=== PATIENT | male | born 1950 | race African-American/Black ===

== ENCOUNTER 2020-02-25 21:47 | Inpatient (IN) | payer OTHER ==
[~2020-02-25] VITALS: Ht 175.3 cm; Wt 92.5 kg
[2020-02-25 22:41] LABS: Basophils # (auto) 0 10 ^3/uL (0-0.2); Eosinophils # (auto) 0.1 10 ^3/uL (0-0.8); Eosinophils % (auto) 3.6 % (0.0-7.0); Hematocrit 33.7 % (41.0-53.0); Hemoglobin 10.8 g/dL (13.5-17.5); Lymphocytes # (auto) 1.1 10 ^3/uL (0.4-5.4); Lymphocytes % (auto) 28.2 % (10.0-50.0); Mean Corpuscular Hemoglobin 25.5 pg (28.0-32.0); Mean Corpuscular Hgb Conc. 32.1 g/dL (32.0-36.0); Mean Corpuscular Volume 79.5 fL (80.0-100.0); Monocytes # (auto) 0.7 10 ^3/uL (0-1.3); Monocytes % (auto) 17.3 % (0.0-12.0); Neutrophils % (auto) 49.9 % (37.0-80.0); Nucleated Red Blood Cells % 0.1 %; Platelet Count (auto) 306 10^3/uL (140-450); Red Blood Cells 4.24 10^6/uL (4.5-5.90); Red Cell Distribution Width 15.8 % (11.8-14.3); White Blood Cell 3.9 10^3/uL (4.4-10.8)
[2020-02-25 22:55] LABS: Albumin 3.4 g/dL (3.4-5.0); Calcium 8.4 mg/dL (8.5-10.1); Potassium 3.7 mmol/L (3.5-5.1)
[2020-02-25 22:56] LABS: INR 1.16 (0.9-1.15); Partial Thromboplastin Time 29.6 sec (23.0-31.2)
[2020-02-25 23:00] LABS: BUN/Creatinine Ratio 20.2; Total Protein 7.9 g/dL (6.4-8.2)
[2020-02-26] MEDS ORDERED: dilTIAZem HCL 60 MG TAB PO ONE (00:15)
[2020-02-26] MEDS ORDERED: dilTIAZem 25 MG/5 ML VIAL IV ONE (00:15)
[2020-02-26] MEDS ORDERED: FUROSEMIDE 40 MG/4 ML VIAL IV ONE (02:30)
[2020-02-26] MEDS ORDERED: ENOXAPARIN SOD 100 MG/1 ML SYRINGE SC ONE (02:45)
[2020-02-26] MEDS ORDERED: NITROGLYCERIN 0.4 MG SL TAB SL PRN (03:30)
[2020-02-26] MEDS ORDERED: MORPHINE SULF INJ 2 MG/ML SYRINGE 1ML IV PRN (03:30)
[2020-02-26] MEDS ORDERED: HYDROcodone-ACET 5/325MG TAB PO PRN (03:30)
[2020-02-26] MEDS ORDERED: ACETAMINOPHEN 325 MG TAB PO PRN (03:30)
[2020-02-26] MEDS ORDERED: ONDANSETRON HCL 4 MG/2 ML VIAL IV PRN (03:30)
[2020-02-26] MEDS ORDERED: DOCUSATE SOD 100 MG CAP PO PRN (03:30)
[2020-02-26] MEDS ORDERED: MORPHINE SULFATE 4 MG/ML SYR/VIAL IV PRN (03:30)
[2020-02-26] MEDS: FUROSEMIDE 40 MG/4 ML VIAL IV SCH ×2 (06:00→18:09)
[2020-02-26 06:09] LABS: Basophils # (auto) 0.1 10 ^3/uL (0-0.2); Eosinophils # (auto) 0.1 10 ^3/uL (0-0.8); Lymphocytes # (auto) 0.9 10 ^3/uL (0.4-5.4); Monocytes # (auto) 0.7 10 ^3/uL (0-1.3); Monocytes % (auto) 16.6 % (0.0-12.0); Neutrophils # (auto) 2.4 10 ^3/uL (1.6-8.6)
[2020-02-26 06:11] LABS: Basophils % (auto) 1.3 % (0.0-2.0); Eosinophils % (auto) 3.1 % (0.0-7.0); Hematocrit 32.6 % (41.0-53.0); Hemoglobin 10.5 g/dL (13.5-17.5); Lymphocytes % (auto) 22.1 % (10.0-50.0); Mean Corpuscular Hemoglobin 25.7 pg (28.0-32.0); Mean Corpuscular Hgb Conc. 32.1 g/dL (32.0-36.0); Neutrophils % (auto) 56.9 % (37.0-80.0); Nucleated Red Blood Cells % 0.3 %; Platelet Count (auto) 302 10^3/uL (140-450); Red Blood Cells 4.08 10^6/uL (4.5-5.90); Red Cell Distribution Width 15.7 % (11.8-14.3); White Blood Cell 4.3 10^3/uL (4.4-10.8)
[2020-02-26 06:29] LABS: Potassium 3.8 mmol/L (3.5-5.1)
[2020-02-26 06:39] LABS: Albumin 3.3 g/dL (3.4-5.0); BUN/Creatinine Ratio 19.1; Bilirubin, Total 1.4 mg/dL (0.2-1.0); Calcium 8.5 mg/dL (8.5-10.1); Total Protein 7.7 g/dL (6.4-8.2)
[2020-02-26] MEDS ORDERED: hydrALAZINE HCL 20 MG/ML VL ONE (07:38)
[2020-02-26] MEDS: ASPirin 81 mg TAB PO SCH (07:40)
[2020-02-26] MEDS: ZINC SULFATE 220mg CAP or TAB PO SCH (07:40)
[2020-02-26] MEDS: MULTIPLE VITAMIN TAB PO SCH (07:40)
[2020-02-26] MEDS: ASCORBIC ACID 500 MG TAB PO SCH ×2 (07:40→22:30)
[2020-02-26] MEDS: FAMOTIDINE (10MG/ML) 2ML VL IV SCH ×2 (07:40→22:29)
[2020-02-26] MEDS: HEPARIN SODIUM (PORCINE) 5000 UNITS/ML 1ML VIAL SC SCH ×2 (07:41→22:33)
[2020-02-26] MEDS: hydrALAZINE HCL 20 MG/ML VL IV PRN (07:44)
[2020-02-26] MEDS ORDERED: dilTIAZem 120MG ER CAP PO SCH (10:00)
[2020-02-26] MEDS: METOPROLOL TARTRATE 50 MG TAB PO SCH ×2 (13:03→22:30)
[2020-02-26] MEDS: LOSARTAN POTASSIUM 50 MG TAB PO SCH (13:03)
[2020-02-26] MEDS ORDERED: PHYTONADIONE(VitK) ORAL Susp 10mg/10ml(1mg/ml) PO ONE (15:00)
[2020-02-27] MEDS: FUROSEMIDE 40 MG/4 ML VIAL IV SCH ×2 (06:00→17:37)
[2020-02-27 07:09] LABS: Mean Corpuscular Hemoglobin 25.4 pg (28.0-32.0)
[2020-02-27 07:11] LABS: Hemoglobin 10.5 g/dL (13.5-17.5); Mean Corpuscular Hgb Conc. 31.9 g/dL (32.0-36.0); Mean Corpuscular Volume 79.7 fL (80.0-100.0); Platelet Count (auto) 297 10^3/uL (140-450); Red Blood Cells 4.15 10^6/uL (4.5-5.90); Red Cell Distribution Width 16.1 % (11.8-14.3)
[2020-02-27 07:16] LABS: Basophils % (manual) 0 (0.0-2.0); Blast Cells 0; Metamyelocytes % 0; Myelocytes % 0; Promyelocytes % 0; Reactive Lymphocytes 0
[2020-02-27 07:21] LABS: INR 1.25 (0.9-1.15)
[2020-02-27 07:31] LABS: Albumin 3.4 g/dL (3.4-5.0); Calcium 8.7 mg/dL (8.5-10.1); Potassium 3.9 mmol/L (3.5-5.1)
[2020-02-27 07:39] LABS: BUN/Creatinine Ratio 17.6; Bilirubin, Total 1.3 mg/dL (0.2-1.0); Total Protein 8.1 g/dL (6.4-8.2)
[2020-02-27] MEDS ORDERED: ADENOSINE 74 MG in GIVE UN-DILUTED 0 ML IV STA (08:17)
[2020-02-27] MEDS: FAMOTIDINE (10MG/ML) 2ML VL IV SCH ×2 (08:42→22:05)
[2020-02-27] MEDS: METOPROLOL TARTRATE 50 MG TAB PO SCH ×2 (08:43→22:07)
[2020-02-27] MEDS: ASPirin 81 mg TAB PO SCH (08:43)
[2020-02-27] MEDS: LOSARTAN POTASSIUM 50 MG TAB PO SCH (08:43)
[2020-02-27] MEDS: ZINC SULFATE 220mg CAP or TAB PO SCH (08:43)
[2020-02-27] MEDS: ASCORBIC ACID 500 MG TAB PO SCH ×2 (08:43→22:05)
[2020-02-27] MEDS: MULTIPLE VITAMIN TAB PO SCH (08:43)
[2020-02-27 10:21] LABS: Band Neutrophils % (manual) 5; Eosinophils % (manual) 1 (0-7); Lymphocytes % (manual) 28 (10.0-50.0); Monocytes % (manual) 13 (0-12)
[2020-02-27] MEDS: hydrALAZINE HCL 25 MG TAB PO SCH ×2 (10:22→22:07)
[2020-02-27] MEDS: HEPARIN SODIUM (PORCINE) 5000 UNITS/ML 1ML VIAL SC SCH ×2 (10:22→22:06)
[2020-02-27] MEDS: ISOSORBIDE MONONITRATE IR 20 MG TAB PO SCH ×2 (10:22→22:06)
[2020-02-27] MEDS: hydrALAZINE HCL 20 MG/ML VL IV PRN (11:32)
[2020-02-27 21:40] VITALS: BP 112/75
[2020-02-28 05:00] VITALS: BP 134/107
[2020-02-28] MEDS: FUROSEMIDE 40 MG/4 ML VIAL IV SCH ×2 (06:00→18:18)
[2020-02-28 08:00] VITALS: BP 138/84
[2020-02-28] MEDS: FAMOTIDINE (10MG/ML) 2ML VL IV SCH ×2 (08:15→22:07)
[2020-02-28] MEDS: ASCORBIC ACID 500 MG TAB PO SCH ×2 (10:00→22:08)
[2020-02-28] MEDS: MULTIPLE VITAMIN TAB PO SCH (10:00)
[2020-02-28] MEDS: ZINC SULFATE 220mg CAP or TAB PO SCH (10:00)
[2020-02-28] MEDS: HEPARIN SODIUM (PORCINE) 5000 UNITS/ML 1ML VIAL SC SCH ×2 (10:00→22:08)
[2020-02-28] MEDS: ASPirin 81 mg TAB PO SCH (10:00)
[2020-02-28] MEDS: hydrALAZINE HCL 25 MG TAB PO SCH ×2 (10:00→22:07)
[2020-02-28] MEDS: LOSARTAN POTASSIUM 50 MG TAB PO SCH (10:15)
[2020-02-28] MEDS: METOPROLOL TARTRATE 50 MG TAB PO SCH ×2 (10:16→22:08)
[2020-02-28 11:03] LABS: BUN/Creatinine Ratio 19.4; Calcium 8.5 mg/dL (8.5-10.1); Potassium 3.3 mmol/L (3.5-5.1)
[2020-02-28 11:09] LABS: Basophils # (auto) 0.1 10 ^3/uL (0-0.2); Eosinophils # (auto) 0.2 10 ^3/uL (0-0.8); Lymphocytes # (auto) 0.8 10 ^3/uL (0.4-5.4); Monocytes # (auto) 0.8 10 ^3/uL (0-1.3); Red Cell Distribution Width 15.8 % (11.8-14.3)
[2020-02-28 11:11] LABS: Hematocrit 32.1 % (41.0-53.0); Hemoglobin 10.3 g/dL (13.5-17.5); Mean Corpuscular Hemoglobin 25.1 pg (28.0-32.0); Mean Corpuscular Hgb Conc. 32.2 g/dL (32.0-36.0); Mean Corpuscular Volume 77.9 fL (80.0-100.0); Nucleated Red Blood Cells % 0.2 %; Platelet Count (auto) 304 10^3/uL (140-450); Red Blood Cells 4.12 10^6/uL (4.5-5.90); White Blood Cell 4.4 10^3/uL (4.4-10.8)
[2020-02-28] MEDS: ISOSORBIDE MONONITRATE IR 20 MG TAB PO SCH ×2 (11:21→22:08)
[2020-02-28 11:29] LABS: Basophils % (auto) 1.4 % (0.0-2.0); Eosinophils % (auto) 4.2 % (0.0-7.0); Monocytes % (auto) 16.9 % (0.0-12.0); Neutrophils # (auto) 2.7 10 ^3/uL (1.6-8.6); Neutrophils % (auto) 59.5 % (37.0-80.0)
[2020-02-28 16:00] VITALS: BP 127/94
[2020-02-28 20:00] VITALS: BP 136/106
[2020-02-28 22:00] VITALS: BP 136/103
[2020-02-29 05:00] VITALS: BP 126/84
[2020-02-29] MEDS: FUROSEMIDE 40 MG/4 ML VIAL IV SCH (05:57)
[2020-02-29 08:00] VITALS: BP 145/93
[2020-02-29 08:10] VITALS: BP_SYST 136; BP_SYST 145; BP_DIAS 106; BP_DIAS 93
[2020-02-29] MEDS: ISOSORBIDE MONONITRATE IR 20 MG TAB PO SCH (10:00)
[2020-02-29] MEDS: FAMOTIDINE (10MG/ML) 2ML VL IV SCH (10:36)
[2020-02-29] MEDS: ZINC SULFATE 220mg CAP or TAB PO SCH (10:37)
[2020-02-29] MEDS: ASPirin 81 mg TAB PO SCH (10:37)
[2020-02-29] MEDS: hydrALAZINE HCL 25 MG TAB PO SCH (10:38)
[2020-02-29] MEDS: LOSARTAN POTASSIUM 50 MG TAB PO SCH (10:38)
[2020-02-29] MEDS: ASCORBIC ACID 500 MG TAB PO SCH (10:39)
[2020-02-29] MEDS: MULTIPLE VITAMIN TAB PO SCH (10:39)
[2020-02-29] MEDS: METOPROLOL TARTRATE 50 MG TAB PO SCH (10:39)
[2020-02-29] MEDS: HEPARIN SODIUM (PORCINE) 5000 UNITS/ML 1ML VIAL SC SCH (10:40)
[2020-02-29 13:46] VITALS: BP 145/93
== END 2020-02-29 16:55 | disposition home or self-care (01) | DRG 280 ==
LOC: ER 21:49 → TELE 21:50 → TELE-CENTR 02-27 21:00
PROVIDERS: ADMIT Nurse Practitioner Family; ATTEND Family Medicine
DX: I13.0 Hypertensive heart and chronic kidney disease with heart failure and stage 1 through stage 4 chronic kidney disease, or unspecified chronic kidney disease (principal); I21.A1 Myocardial infarction type 2; N17.0 Acute kidney failure with tubular necrosis; I50.42 Chronic combined systolic (congestive) and diastolic (congestive) heart failure; I16.1 Hypertensive emergency; I48.19 Other persistent atrial fibrillation; D68.69 Other thrombophilia; I48.92 Unspecified atrial flutter; N18.9 Chronic kidney disease, unspecified; K21.9 Gastro-esophageal reflux disease without esophagitis; F17.210 Nicotine dependence, cigarettes, uncomplicated; F41.9 Anxiety disorder, unspecified; I25.10 Atherosclerotic heart disease of native coronary artery without angina pectoris; G89.29 Other chronic pain; Z20.822 Contact with and (suspected) exposure to COVID-19; Z95.1 Presence of aortocoronary bypass graft; Z95.5 Presence of coronary angioplasty implant and graft; Z95.810 Presence of automatic (implantable) cardiac defibrillator
CPT/HCPCS: 36415; 71045; 78452; 80048; 80053; 83735; 83880; 84443; 84484; 85007; 85025; 85027; 85379; 85610; 85730; 87426; 93005; 93017; 93306; 96372; 96374; 96375; G0378; J0153; J3490

== ENCOUNTER 2020-03-13 13:19 | Inpatient (IN) | payer OTHER ==
[~2020-03-13] VITALS: Ht 175.3 cm; Wt 70.0 kg
[2020-03-13] MEDS ORDERED: SODIUM CHLORIDE 0.9% 500 ML IVB ONE (13:45)
[2020-03-13] MEDS ORDERED: ONDANSETRON HCL 4 MG/2 ML VIAL IV ONE (13:45)
[2020-03-13] MEDS ORDERED: MORPHINE SULFATE 4 MG/ML SYR/VIAL IV ONE (13:45)
[2020-03-13 15:19] LABS: Basophils # (auto) 0 10 ^3/uL (0-0.2); Eosinophils # (auto) 0 10 ^3/uL (0-0.8); Hematocrit 41.4 % (41.0-53.0); Lymphocytes # (auto) 1.1 10 ^3/uL (0.4-5.4); Monocytes % (auto) 14.4 % (0.0-12.0)
[2020-03-13 15:21] LABS: Basophils % (auto) 0.2 % (0.0-2.0); Hemoglobin 13.2 g/dL (13.5-17.5); Lymphocytes % (auto) 7.3 % (10.0-50.0); Mean Corpuscular Hemoglobin 24.6 pg (28.0-32.0); Mean Corpuscular Hgb Conc. 31.8 g/dL (32.0-36.0); Mean Corpuscular Volume 77.4 fL (80.0-100.0); Monocytes # (auto) 2.1 10 ^3/uL (0-1.3); Neutrophils # (auto) 11.5 10 ^3/uL (1.6-8.6); Neutrophils % (auto) 78.1 % (37.0-80.0); Platelet Count (auto) 307 10^3/uL (140-450); Red Blood Cells 5.35 10^6/uL (4.5-5.90); Red Cell Distribution Width 16.5 % (11.8-14.3); White Blood Cell 14.8 10^3/uL (4.4-10.8)
[2020-03-13 15:44] LABS: Albumin 3.6 g/dL (3.4-5.0); BUN/Creatinine Ratio 15.2; Calcium 9.4 mg/dL (8.5-10.1); Potassium 5.1 mmol/L (3.5-5.1)
[2020-03-13 15:47] LABS: Bilirubin, Total 2.3 mg/dL (0.2-1.0); Total Protein 8.5 g/dL (6.4-8.2)
[2020-03-13] MEDS ORDERED: dilTIAZem 25 MG/5 ML VIAL IV ONE (16:30)
[2020-03-13] MEDS ORDERED: MORPHINE SULF INJ 2 MG/ML SYRINGE 1ML IV PRN (18:15)
[2020-03-13] MEDS ORDERED: CEFTRIAXONE SODIUM 2 GM in D5W 5% 50 ML IV ONE (18:15)
[2020-03-13] MEDS ORDERED: NITROGLYCERIN 0.4 MG SL TAB SL PRN (18:15)
[2020-03-13] MEDS ORDERED: FURO40TA4 PO (19:10)
[2020-03-13] MEDS ORDERED: METO-158 PO (19:10)
[2020-03-13] MEDS ORDERED: LOSA-69 PO (19:12)
[2020-03-13] MEDS ORDERED: ASPI-498 PO (19:14)
[2020-03-13] MEDS ORDERED: HYDR50TA15 PO (19:15)
[2020-03-13] MEDS ORDERED: POTA10TA32 PO (19:21)
[2020-03-13] MEDS ORDERED: LACTATED RINGER'S 1,000 ML IV ONE (20:00)
[2020-03-14] MEDS ORDERED: dilTIAZem 25 MG/5 ML VIAL IV ONE (01:15)
[2020-03-14] MEDS ORDERED: HYDROcodone-ACET 5/325MG TAB PO PRN (04:00)
[2020-03-14] MEDS ORDERED: ONDANSETRON HCL 4 MG/2 ML VIAL IV PRN (04:00)
[2020-03-14] MEDS ORDERED: MORPHINE SULF INJ 2 MG/ML SYRINGE 1ML IV PRN ×2 (04:00)
[2020-03-14] MEDS ORDERED: LORazepam 0.5 MG TAB PO PRN (04:00)
[2020-03-14] MEDS ORDERED: NITROGLYCERIN 0.4 MG SL TAB SL PRN (04:00)
[2020-03-14] MEDS ORDERED: DOXYCYCLINE 100MG/250ML 250 ML IV SCH (04:00)
[2020-03-14] MEDS ORDERED: ACETAMINOPHEN 325 MG TAB PO PRN (04:00)
[2020-03-14] MEDS ORDERED: METOPROLOL TARTRATE 1MG/1ML-5ML VIAL IV PRN (04:00)
[2020-03-14] MEDS ORDERED: ALUM & MAG HYDROX-SIMETH LIQ(MAALOX) 30 ML PO PRN (04:00)
[2020-03-14] MEDS ORDERED: DOCUSATE SOD 100 MG CAP PO PRN (04:00)
[2020-03-14] MEDS: FUROSEMIDE 20 MG/2 ML VIAL IV SCH ×3 (05:59→17:27)
[2020-03-14] MEDS: DOXYCYCLINE 100MG/250ML 250 ML IV SCH ×2 (06:20→16:18)
[2020-03-14 06:56] LABS: Basophils # (auto) 0.1 10 ^3/uL (0-0.2); Basophils % (auto) 0.5 % (0.0-2.0); Eosinophils # (auto) 0 10 ^3/uL (0-0.8); Eosinophils % (auto) 0.2 % (0.0-7.0); Hemoglobin 12.3 g/dL (13.5-17.5); Lymphocytes # (auto) 1.4 10 ^3/uL (0.4-5.4); Mean Corpuscular Volume 77.6 fL (80.0-100.0)
[2020-03-14 06:59] LABS: Hematocrit 38.2 % (41.0-53.0); Lymphocytes % (auto) 9.7 % (10.0-50.0); Mean Corpuscular Hemoglobin 24.9 pg (28.0-32.0); Mean Corpuscular Hgb Conc. 32.1 g/dL (32.0-36.0); Monocytes # (auto) 2.1 10 ^3/uL (0-1.3); Monocytes % (auto) 14.2 % (0.0-12.0); Neutrophils # (auto) 11.3 10 ^3/uL (1.6-8.6); Neutrophils % (auto) 75.4 % (37.0-80.0); Platelet Count (auto) 274 10^3/uL (140-450); Red Blood Cells 4.92 10^6/uL (4.5-5.90); Red Cell Distribution Width 16.4 % (11.8-14.3); White Blood Cell 14.9 10^3/uL (4.4-10.8)
[2020-03-14 07:30] LABS: INR 1.16 (0.9-1.15); Partial Thromboplastin Time 32.5 sec (23.0-31.2)
[2020-03-14 07:39] LABS: Potassium 4.5 mmol/L (3.5-5.1)
[2020-03-14 08:09] LABS: BUN/Creatinine Ratio 16.6; Bilirubin, Total 2.1 mg/dL (0.2-1.0); Calcium 8.7 mg/dL (8.5-10.1); Magnesium 2.1 mg/dL (1.6-2.6); Phosphorus 3.8 mg/dL (2.5-4.90); Total Protein 7.6 g/dL (6.4-8.2)
[2020-03-14 08:49] VITALS: BP 130/110
[2020-03-14] MEDS ORDERED: cefTRIAXone 1GM/50ML D5W 50 ML IV SCH (09:00)
[2020-03-14] MEDS: cefTRIAXone 1GM/50ML D5W 50 ML IV SCH (09:47)
[2020-03-14] MEDS: hydrALAZINE HCL 25 MG TAB PO SCH ×2 (09:48→22:00)
[2020-03-14] MEDS: ISOSORBIDE MONONITRATE IR 20 MG TAB PO SCH ×2 (09:48→22:00)
[2020-03-14] MEDS: ASPirin-EC 81 mg tab PO SCH (09:48)
[2020-03-14] MEDS: METOPROLOL TARTRATE 50 MG TAB PO SCH ×2 (09:49→22:00)
[2020-03-14] MEDS: ENOXAPARIN SOD 60 MG/0.6 ML SYRINGE SC SCH ×2 (09:49→22:07)
[2020-03-14] MEDS ORDERED: INFLUENZA QUAD 2020-2021 0.5 ML SYRG IM ONE (10:00)
[2020-03-14 15:55] VITALS: BP 130/68
[2020-03-14 22:00] VITALS: BP 108/76
[2020-03-14] MEDS: ATORVASTATIN 20 MG TAB PO SCH (22:06)
[2020-03-15 00:16] LABS: Urine Bacteria FEW /hpf (None Seen); Urine Blood 2+ /uL (Negative); Urine WBC 1 /hpf (0 - 3)
[2020-03-15 00:34] LABS: Alcohol, Urine < 3.0 mg/dL (0-10); Amphetamine Screen, Urine NEGATIVE (NEGATIVE); Barbiturate Scree,Urine NEGATIVE (NEGATIVE); Benzodiazephine Screen, Urine NEGATIVE (NEGATIVE); Cannabinoid Screen, Urine NEGATIVE (NEGATIVE); Cocaine Screen, Urine NEGATIVE (NEGATIVE); Opiate Scree,Urine NEGATIVE (NEGATIVE); Phencyclidine Screen, Urine NEGATIVE (NEGATIVE)
[2020-03-15] MEDS: DOXYCYCLINE 100MG/250ML 250 ML IV SCH ×2 (03:42→17:54)
[2020-03-15 05:00] VITALS: BP 117/75
[2020-03-15] MEDS: FUROSEMIDE 20 MG/2 ML VIAL IV SCH ×2 (06:50→17:54)
[2020-03-15 06:58] LABS: Basophils # (auto) 0.1 10 ^3/uL (0-0.2); Eosinophils # (auto) 0.1 10 ^3/uL (0-0.8); Monocytes # (auto) 1.7 10 ^3/uL (0-1.3); Neutrophils % (auto) 72.7 % (37.0-80.0)
[2020-03-15 06:59] LABS: Basophils % (auto) 0.7 % (0.0-2.0); Hematocrit 34.1 % (41.0-53.0); Lymphocytes # (auto) 1.2 10 ^3/uL (0.4-5.4); Lymphocytes % (auto) 10.3 % (10.0-50.0); Mean Corpuscular Hemoglobin 24.9 pg (28.0-32.0); Mean Corpuscular Hgb Conc. 32.2 g/dL (32.0-36.0); Mean Corpuscular Volume 77.4 fL (80.0-100.0); Monocytes % (auto) 15.3 % (0.0-12.0); Neutrophils # (auto) 8.2 10 ^3/uL (1.6-8.6); Nucleated Red Blood Cells % 0.1 %; Platelet Count (auto) 230 10^3/uL (140-450); Red Cell Distribution Width 16.4 % (11.8-14.3); White Blood Cell 11.3 10^3/uL (4.4-10.8)
[2020-03-15 07:08] LABS: Albumin 2.7 g/dL (3.4-5.0); Calcium 8.6 mg/dL (8.5-10.1); Potassium 4.3 mmol/L (3.5-5.1)
[2020-03-15 07:11] LABS: BUN/Creatinine Ratio 16.7; Bilirubin, Total 1.9 mg/dL (0.2-1.0); Total Protein 7.2 g/dL (6.4-8.2)
[2020-03-15 07:54] VITALS: BP 118/83
[2020-03-15] MEDS: ASPirin-EC 81 mg tab PO SCH (10:34)
[2020-03-15] MEDS: hydrALAZINE HCL 25 MG TAB PO SCH ×2 (10:34→21:57)
[2020-03-15] MEDS: cefTRIAXone 1GM/50ML D5W 50 ML IV SCH (10:34)
[2020-03-15] MEDS: METOPROLOL TARTRATE 50 MG TAB PO SCH ×2 (10:35→21:58)
[2020-03-15] MEDS: ISOSORBIDE MONONITRATE IR 20 MG TAB PO SCH ×2 (10:35→21:57)
[2020-03-15] MEDS: ENOXAPARIN SOD 60 MG/0.6 ML SYRINGE SC SCH ×2 (10:36→21:58)
[2020-03-15 15:44] VITALS: BP 96/58
[2020-03-15 21:44] VITALS: BP 118/77
[2020-03-15] MEDS: ATORVASTATIN 20 MG TAB PO SCH (21:57)
[2020-03-16] MEDS: DOXYCYCLINE 100MG/250ML 250 ML IV SCH (04:01)
[2020-03-16] MEDS: FUROSEMIDE 20 MG/2 ML VIAL IV SCH (05:31)
[2020-03-16 05:41] VITALS: BP 101/76
[2020-03-16 07:06] LABS: Potassium 4.6 mmol/L (3.5-5.1)
[2020-03-16 07:12] LABS: BUN/Creatinine Ratio 21.7; Bilirubin, Total 1.3 mg/dL (0.2-1.0); Total Protein 8.2 g/dL (6.4-8.2)
[2020-03-16 07:13] LABS: Basophils # (auto) 0 10 ^3/uL (0-0.2); Basophils % (auto) 0.4 % (0.0-2.0); Eosinophils # (auto) 0.2 10 ^3/uL (0-0.8); Eosinophils % (auto) 2.1 % (0.0-7.0); Hematocrit 35.7 % (41.0-53.0); Hemoglobin 11.5 g/dL (13.5-17.5); Lymphocytes # (auto) 1.6 10 ^3/uL (0.4-5.4); Lymphocytes % (auto) 17.7 % (10.0-50.0); Mean Corpuscular Hemoglobin 25.2 pg (28.0-32.0); Mean Corpuscular Hgb Conc. 32.3 g/dL (32.0-36.0); Mean Corpuscular Volume 77.9 fL (80.0-100.0); Monocytes # (auto) 1.3 10 ^3/uL (0-1.3); Monocytes % (auto) 14.7 % (0.0-12.0); Neutrophils # (auto) 5.8 10 ^3/uL (1.6-8.6); Neutrophils % (auto) 65.1 % (37.0-80.0); Nucleated Red Blood Cells % 0.1 %; Platelet Count (auto) 279 10^3/uL (140-450); Red Blood Cells 4.57 10^6/uL (4.5-5.90); Red Cell Distribution Width 16.5 % (11.8-14.3); White Blood Cell 8.9 10^3/uL (4.4-10.8)
[2020-03-16 08:00] VITALS: BP 126/78
[2020-03-16] MEDS: cefTRIAXone 1GM/50ML D5W 50 ML IV SCH (10:09)
[2020-03-16] MEDS: ASPirin-EC 81 mg tab PO SCH (10:10)
[2020-03-16] MEDS: hydrALAZINE HCL 25 MG TAB PO SCH (10:10)
[2020-03-16] MEDS: ISOSORBIDE MONONITRATE IR 20 MG TAB PO SCH (10:11)
[2020-03-16] MEDS: ENOXAPARIN SOD 60 MG/0.6 ML SYRINGE SC SCH (10:12)
[2020-03-16] MEDS: METOPROLOL TARTRATE 50 MG TAB PO SCH (10:12)
[2020-03-16 15:41] VITALS: BP 121/87
== END 2020-03-16 15:14 | disposition home or self-care (01) | DRG 871 ==
LOC: ER 13:19 → TELE 18:02 → TELE-EAST 03-14 08:38
PROVIDERS: ADMIT Hospitalist; ATTEND Family Medicine
DX: A41.9 Sepsis, unspecified organism (principal); J18.9 Pneumonia, unspecified organism; I21.4 Non-ST elevation (NSTEMI) myocardial infarction; N17.0 Acute kidney failure with tubular necrosis; N10 Acute pyelonephritis; I48.19 Other persistent atrial fibrillation; B17.9 Acute viral hepatitis, unspecified; I13.0 Hypertensive heart and chronic kidney disease with heart failure and stage 1 through stage 4 chronic kidney disease, or unspecified chronic kidney disease; I16.1 Hypertensive emergency; J44.0 Chronic obstructive pulmonary disease with (acute) lower respiratory infection; K80.10 Calculus of gallbladder with chronic cholecystitis without obstruction; I50.42 Chronic combined systolic (congestive) and diastolic (congestive) heart failure; I50.82 Biventricular heart failure; I25.5 Ischemic cardiomyopathy; N18.31 Chronic kidney disease, stage 3a; K76.0 Fatty (change of) liver, not elsewhere classified; E78.5 Hyperlipidemia, unspecified; N20.0 Calculus of kidney; E87.5 Hyperkalemia; F17.210 Nicotine dependence, cigarettes, uncomplicated; F41.9 Anxiety disorder, unspecified; I25.10 Atherosclerotic heart disease of native coronary artery without angina pectoris; K40.20 Bilateral inguinal hernia, without obstruction or gangrene, not specified as recurrent; Z20.822 Contact with and (suspected) exposure to COVID-19; Z82.3 Family history of stroke; Z86.73 Personal history of transient ischemic attack (TIA), and cerebral infarction without residual deficits; Z95.0 Presence of cardiac pacemaker; Z95.1 Presence of aortocoronary bypass graft; Z79.899 Other long term (current) drug therapy; I25.2 Old myocardial infarction
CPT/HCPCS: 36415; 71045; 74176; 76705; 76775; 78226; 80053; 80061; 80307; 81001; 83036; 83690; 83735; 84100; 84484; 85025; 85610; 85730; 87040; 87086; 87426; 93005; G0378; J0696; J2405; J3490; J7060

== ENCOUNTER 2020-11-05 10:05 | Inpatient (IN) | payer OTHER ==
[~2020-11-05] VITALS: Ht 154.3 cm; Wt 86.1 kg
[~2020-11-05 10:05] MED LIST: ASPI-498 PO; FURO40TA4 PO; HYDR50TA15 PO; LOSA-69 PO; METO-158 PO; POTA10TA32 PO
[2020-11-05] MEDS ORDERED: FUROSEMIDE 40 MG/4 ML VIAL IV ONE (10:30)
[2020-11-05 10:41] LABS: Basophils # (auto) 0.1 10 ^3/uL (0-0.2); Basophils % (auto) 1.5 % (0.0-2.0); Eosinophils # (auto) 0.2 10 ^3/uL (0-0.8); Eosinophils % (auto) 4.7 % (0.0-7.0); Hematocrit 35.9 % (41.0-53.0); Hemoglobin 10.9 g/dL (13.5-17.5); Lymphocytes # (auto) 0.9 10 ^3/uL (0.4-5.4); Lymphocytes % (auto) 19.8 % (10.0-50.0); Mean Corpuscular Hemoglobin 25.1 pg (28.0-32.0); Mean Corpuscular Hgb Conc. 30.3 g/dL (32.0-36.0); Monocytes # (auto) 0.5 10 ^3/uL (0-1.3); Monocytes % (auto) 10.3 % (0.0-12.0); Neutrophils # (auto) 2.8 10 ^3/uL (1.6-8.6); Neutrophils % (auto) 63.7 % (37.0-80.0); Nucleated Red Blood Cells % 0.1 %; Red Blood Cells 4.33 10^6/uL (4.5-5.90); Red Cell Distribution Width 18.2 % (11.8-14.3); White Blood Cell 4.5 10^3/uL (4.4-10.8)
[2020-11-05 10:55] LABS: Albumin 3.4 g/dL (3.4-5.0); Potassium 4.1 mmol/L (3.5-5.1)
[2020-11-05 11:01] LABS: BUN/Creatinine Ratio 18.9; Bilirubin, Total 2.1 mg/dL (0.2-1.0); Total Protein 7.6 g/dL (6.4-8.2)
[2020-11-05 12:02] LABS: Urine Bacteria FEW /hpf (None Seen); Urine Blood Negative /uL (Negative); Urine WBC <1 /hpf (0 - 3)
[2020-11-05] MEDS ORDERED: ENOXAPARIN SOD 80 MG/0.8ML SYRINGE SC ONE (13:00)
[2020-11-05] MEDS ORDERED: METOPROLOL SUCCINATE XL 50 MG TAB PO ONE (13:15)
[2020-11-05] MEDS ORDERED: NITROGLYCERIN 0.4 MG SL TAB SL PRN (13:45)
[2020-11-05] MEDS ORDERED: ONDANSETRON HCL 4 MG/2 ML VIAL IV PRN (13:45)
[2020-11-05] MEDS ORDERED: MORPHINE SULFATE INJECTION 2 MG/ML SYRG IV PRN ×2 (13:45)
[2020-11-05] MEDS ORDERED: ACETAMINOPHEN 500 MG TAB PO PRN (13:45)
[2020-11-05] MEDS ORDERED: hydrALAZINE HCL 20 MG/ML VL IV PRN (13:45)
[2020-11-05 21:40] VITALS: BP 161/109
[2020-11-05] MEDS: ATORVASTATIN 20 MG TAB PO SCH (23:28)
[2020-11-05] MEDS: METOPROLOL TARTRATE 25 MG TAB PO SCH (23:29)
[2020-11-05] MEDS: APIXABAN 5 MG TAB PO SCH (23:29)
[2020-11-06] MEDS: HYDROcodone-ACET 5/325MG TAB PO PRN (00:43)
[2020-11-06 05:00] VITALS: BP 136/102
[2020-11-06 05:56] LABS: Basophils # (auto) 0.1 10 ^3/uL (0-0.2); Eosinophils # (auto) 0.1 10 ^3/uL (0-0.8); Hemoglobin 10.6 g/dL (13.5-17.5); Mean Corpuscular Volume 81.2 fL (80.0-100.0); Monocytes # (auto) 0.7 10 ^3/uL (0-1.3); Neutrophils # (auto) 2.9 10 ^3/uL (1.6-8.6); White Blood Cell 5.1 10^3/uL (4.4-10.8)
[2020-11-06 05:59] LABS: Basophils % (auto) 1.4 % (0.0-2.0); Eosinophils % (auto) 2.8 % (0.0-7.0); Hematocrit 32.5 % (41.0-53.0); Lymphocytes # (auto) 1.3 10 ^3/uL (0.4-5.4); Lymphocytes % (auto) 26.3 % (10.0-50.0); Mean Corpuscular Hemoglobin 26.4 pg (28.0-32.0); Mean Corpuscular Hgb Conc. 32.5 g/dL (32.0-36.0); Monocytes % (auto) 13.4 % (0.0-12.0); Neutrophils % (auto) 56.1 % (37.0-80.0); Nucleated Red Blood Cells % 0.2 %; Red Cell Distribution Width 17.7 % (11.8-14.3)
[2020-11-06 06:20] LABS: Potassium 3.8 mmol/L (3.5-5.1)
[2020-11-06 08:30] VITALS: BP 158/48
[2020-11-06 09:00] VITALS: BP 157/104
[2020-11-06] MEDS ORDERED: LISINOPRIL 10 MG TAB PO SCH (10:00)
[2020-11-06] MEDS ORDERED: FUROSEMIDE 20 MG/2 ML VIAL IV SCH (10:00)
[2020-11-06] MEDS: APIXABAN 5 MG TAB PO SCH ×2 (10:17→20:27)
[2020-11-06] MEDS: METOPROLOL TARTRATE 25 MG TAB PO SCH (10:18)
[2020-11-06] MEDS ORDERED: LOSARTAN POTASSIUM 50 MG TAB PO ONE (11:30)
[2020-11-06] MEDS ORDERED: METOPROLOL TARTRATE 25 MG TAB PO ONE (11:30)
[2020-11-06] MEDS ORDERED: hydrALAZINE HCL 20 MG/ML VL IV PRN (11:30)
[2020-11-06 13:00] VITALS: BP 141/100
[2020-11-06] MEDS ORDERED: DIGOXIN 0.25 MG TAB PO ONE (15:00)
[2020-11-06 17:00] VITALS: BP 149/116
[2020-11-06] MEDS: POTASSIUM CHL 10 Meq TABLET PO SCH (20:27)
[2020-11-06] MEDS: FUROSEMIDE 20 MG/2 ML VIAL IV SCH (20:27)
[2020-11-06] MEDS: ATORVASTATIN 20 MG TAB PO SCH (20:27)
[2020-11-06] MEDS: METOPROLOL TARTRATE 50 MG TAB PO SCH (20:28)
[2020-11-06 22:00] VITALS: BP 150/112
[2020-11-07 05:00] VITALS: BP 160/105
[2020-11-07 05:14] LABS: Basophils # (auto) 0.1 10 ^3/uL (0-0.2); Basophils % (auto) 1.1 % (0.0-2.0); Eosinophils # (auto) 0.1 10 ^3/uL (0-0.8); Eosinophils % (auto) 1.1 % (0.0-7.0); Hematocrit 34.3 % (41.0-53.0); Hemoglobin 10.8 g/dL (13.5-17.5); Lymphocytes # (auto) 1.2 10 ^3/uL (0.4-5.4); Lymphocytes % (auto) 24.7 % (10.0-50.0); Mean Corpuscular Hemoglobin 25.6 pg (28.0-32.0); Mean Corpuscular Hgb Conc. 31.5 g/dL (32.0-36.0); Mean Corpuscular Volume 81.2 fL (80.0-100.0); Monocytes # (auto) 0.6 10 ^3/uL (0-1.3); Monocytes % (auto) 13.4 % (0.0-12.0); Neutrophils # (auto) 2.9 10 ^3/uL (1.6-8.6); Neutrophils % (auto) 59.7 % (37.0-80.0); Nucleated Red Blood Cells % 0.3 %; Red Blood Cells 4.23 10^6/uL (4.5-5.90); Red Cell Distribution Width 17.9 % (11.8-14.3); White Blood Cell 4.8 10^3/uL (4.4-10.8)
[2020-11-07 05:25] VITALS: BP 148/101
[2020-11-07 05:35] LABS: BUN/Creatinine Ratio 24.1; Calcium 9.2 mg/dL (8.5-10.1)
[2020-11-07 09:00] VITALS: BP 144/119
[2020-11-07] MEDS ORDERED: LOSARTAN POTASSIUM 50 MG TAB PO SCH (10:00)
[2020-11-07] MEDS: FUROSEMIDE 20 MG/2 ML VIAL IV SCH (10:23)
[2020-11-07] MEDS: APIXABAN 5 MG TAB PO SCH ×2 (10:23→21:46)
[2020-11-07] MEDS: POTASSIUM CHL 10 Meq TABLET PO SCH (10:23)
[2020-11-07] MEDS: METOPROLOL TARTRATE 50 MG TAB PO SCH ×3 (10:24→22:58)
[2020-11-07] MEDS: DIGOXIN 0.125 MG TAB PO SCH (10:24)
[2020-11-07] MEDS ORDERED: APIX5TAB PO (11:08)
[2020-11-07] MEDS ORDERED: CARV25TA55 PO (11:08)
[2020-11-07] MEDS ORDERED: ATOR40TA52 PO (11:08)
[2020-11-07] MEDS ORDERED: HYDR50TA15 PO (11:08)
[2020-11-07] MEDS ORDERED: LOSA25TA38 PO (11:08)
[2020-11-07] MEDS ORDERED: ISOS1TAB28 PO (11:08)
[2020-11-07] MEDS ORDERED: ASPI-543 PO (11:08)
[2020-11-07 13:00] VITALS: BP 145/107
[2020-11-07 15:26] LABS: INR 1.6 (0.9-1.15)
[2020-11-07] MEDS ORDERED: cloNIDine HCL 0.1 MG TAB PO ONE (16:45)
[2020-11-07 16:48] VITALS: BP 151/103
[2020-11-07] MEDS: ATORVASTATIN 20 MG TAB PO SCH (21:46)
[2020-11-07] MEDS: SACUBITRIL-VALSARTAN 24mg/26mg TAB PO SCH (21:47)
[2020-11-07 22:00] VITALS: BP 154/90
[2020-11-08] VITALS (10 sets, daily range): BP systolic 122–156; BP diastolic 74–110
[2020-11-08 06:05] LABS: Calcium 8.9 mg/dL (8.5-10.1); Potassium 4.1 mmol/L (3.5-5.1)
[2020-11-08 06:09] LABS: BUN/Creatinine Ratio 27.7
[2020-11-08] MEDS ORDERED: MIDAZOLAM HCL 2MG/2ML 2ml VIAL (1mg/ml) ONE (06:32)
[2020-11-08] MEDS ORDERED: ANGIOMAX 250 MG VIAL IV ONE (06:32)
[2020-11-08] MEDS ORDERED: fentaNYL CITRATE 100 MCG/2 ML VL ONE (06:32)
[2020-11-08] MEDS ORDERED: SODIUM CHL 0.9% 0 ML ONE (06:32)
[2020-11-08] MEDS ORDERED: IOHEXOL 350 MG/ML 100ML IJ ONE ×2 (06:43→07:05)
[2020-11-08] MEDS ORDERED: LIDOCAINE 2%HCL (LOCAL ANESTH.) INJ 20ML MDV ONE ×2 (06:43→07:04)
[2020-11-08] MEDS: FUROSEMIDE 20 MG/2 ML VIAL IV SCH (09:08)
[2020-11-08] MEDS: SACUBITRIL-VALSARTAN 24mg/26mg TAB PO SCH ×2 (09:09→21:56)
[2020-11-08] MEDS: APIXABAN 5 MG TAB PO SCH ×2 (09:09→21:54)
[2020-11-08] MEDS: POTASSIUM CHL 10 Meq TABLET PO SCH (09:09)
[2020-11-08] MEDS: DIGOXIN 0.125 MG TAB PO SCH (09:09)
[2020-11-08] MEDS ORDERED: LOSARTAN POTASSIUM 25 MG TAB PO ONE (11:00)
[2020-11-08] MEDS: HYDROcodone-ACET 5/325MG TAB PO PRN (15:31)
[2020-11-08] MEDS: ATORVASTATIN 20 MG TAB PO SCH (21:55)
[2020-11-08] MEDS: METOPROLOL TARTRATE 50 MG TAB PO SCH (21:56)
[2020-11-09 05:30] VITALS: BP 128/102
[2020-11-09 08:37] VITALS: BP 143/93
[2020-11-09] MEDS: APIXABAN 5 MG TAB PO SCH (10:00)
[2020-11-09] MEDS ORDERED: LOSARTAN POTASSIUM 25 MG TAB PO SCH (10:00)
[2020-11-09] MEDS: DIGOXIN 0.125 MG TAB PO SCH (10:00)
[2020-11-09] MEDS: METOPROLOL TARTRATE 50 MG TAB PO SCH (10:00)
[2020-11-09] MEDS: POTASSIUM CHL 10 Meq TABLET PO SCH (10:00)
[2020-11-09] MEDS: FUROSEMIDE 20 MG/2 ML VIAL IV SCH (10:00)
[2020-11-09] MEDS: SACUBITRIL-VALSARTAN 24mg/26mg TAB PO SCH (10:30)
== END 2020-11-09 11:00 | disposition home or self-care (01) | DRG 280 ==
LOC: EDBD 10:05 → ER 10:05 → TELE 13:40 → TELE-CENTR 20:51
PROVIDERS: ADMIT Nurse Practitioner Acute Care; ATTEND Internal Medicine
PROC: 4A023N7 Measurement of Cardiac Sampling and Pressure, Left Heart, Percutaneous Approach (ICD-10-PCS; principal; 2020-11-08)
PROC: B2111ZZ Fluoroscopy of Multiple Coronary Arteries using Low Osmolar Contrast (ICD-10-PCS; 2020-11-08)
PROC: B2151ZZ Fluoroscopy of Left Heart using Low Osmolar Contrast (ICD-10-PCS; 2020-11-08)
PROC: B2181ZZ Fluoroscopy of Left Internal Mammary Bypass Graft using Low Osmolar Contrast (ICD-10-PCS; 2020-11-08)
PROC: B2121ZZ Fluoroscopy of Single Coronary Artery Bypass Graft using Low Osmolar Contrast (ICD-10-PCS; 2020-11-08)
PROC: B3101ZZ Fluoroscopy of Thoracic Aorta using Low Osmolar Contrast (ICD-10-PCS; 2020-11-08)
DX: I21.4 Non-ST elevation (NSTEMI) myocardial infarction (principal); I50.23 Acute on chronic systolic (congestive) heart failure; J96.01 Acute respiratory failure with hypoxia; I13.0 Hypertensive heart and chronic kidney disease with heart failure and stage 1 through stage 4 chronic kidney disease, or unspecified chronic kidney disease; D68.69 Other thrombophilia; E87.2 Acidosis; I48.91 Unspecified atrial fibrillation; I25.10 Atherosclerotic heart disease of native coronary artery without angina pectoris; N18.31 Chronic kidney disease, stage 3a; D50.9 Iron deficiency anemia, unspecified; I07.1 Rheumatic tricuspid insufficiency; I25.5 Ischemic cardiomyopathy; Z20.822 Contact with and (suspected) exposure to COVID-19; E78.5 Hyperlipidemia, unspecified; F17.210 Nicotine dependence, cigarettes, uncomplicated; F41.9 Anxiety disorder, unspecified; I73.9 Peripheral vascular disease, unspecified; Z82.3 Family history of stroke; Z95.1 Presence of aortocoronary bypass graft; Z95.5 Presence of coronary angioplasty implant and graft; Z95.810 Presence of automatic (implantable) cardiac defibrillator
CPT/HCPCS: 36415; 71045; 80048; 80053; 81001; 83880; 84484; 85025; 85610; 86141; 87426; 93005; 93306; 93459; 93567; 96372; 96374; 99152; G0378; J2250

== ENCOUNTER 2020-12-23 17:23 | Inpatient (IN) | payer OTHER ==
[~2020-12-23] VITALS: Ht 175.3 cm; Wt 74.6 kg
[~2020-12-23 17:23] MED LIST changes: +APIX5TAB PO; +ATOR40TA52 PO; +CARV25TA55 PO; +ISOS1TAB28 PO; -LOSA-69 PO; +LOSA25TA38 PO
[2020-12-23 21:10] LABS: Urine Bacteria NONE SEEN /hpf (None Seen); Urine Blood 3+ /uL (Negative); Urine Hyaline Cast FEW /lpf (0 - 2); Urine Mucus FEW (None Seen); Urine Specific Gravity 1.008 (1.001-1.035); Urine WBC 1 /hpf (0 - 3)
[2020-12-23 22:08] LABS: Basophils # (auto) 0.1 10 ^3/uL (0-0.2); Hemoglobin 9.8 g/dL (13.5-17.5); Monocytes # (auto) 0.9 10 ^3/uL (0-1.3); Nucleated Red Blood Cells % 0.1 %
[2020-12-23 22:15] LABS: Basophils % (auto) 1.2 % (0.0-2.0); Eosinophils # (auto) 0 10 ^3/uL (0-0.8); Eosinophils % (auto) 0.6 % (0.0-7.0); Hematocrit 31.4 % (41.0-53.0); Lymphocytes # (auto) 1.4 10 ^3/uL (0.4-5.4); Lymphocytes % (auto) 17.9 % (10.0-50.0); Mean Corpuscular Hemoglobin 22.8 pg (28.0-32.0); Mean Corpuscular Hgb Conc. 31.2 g/dL (32.0-36.0); Mean Corpuscular Volume 73.1 fL (80.0-100.0); Neutrophils # (auto) 5.3 10 ^3/uL (1.6-8.6); Neutrophils % (auto) 68.3 % (37.0-80.0); Red Blood Cells 4.29 10^6/uL (4.5-5.90); White Blood Cell 7.7 10^3/uL (4.4-10.8)
[2020-12-23 22:25] LABS: INR 1.27 (0.9-1.15); Partial Thromboplastin Time 32.6 sec (23.6-33.0)
[2020-12-23 22:26] LABS: Albumin 2.6 g/dL (3.4-5.0); Magnesium 2.9 mg/dL (1.6-2.6)
[2020-12-23 22:32] LABS: BUN/Creatinine Ratio 26.8; Bilirubin, Total 2.1 mg/dL (0.2-1.0); Total Protein 7.4 g/dL (6.4-8.2)
[2020-12-23 22:45] LABS: Potassium 2.9 mmol/L (3.5-5.1)
[2020-12-23] MEDS ORDERED: POTASSIUM EFFERVESENT TAB 25 MEQ PO ONE (23:00)
[2020-12-24] MEDS ORDERED: ONDANSETRON HCL 4 MG/2 ML VIAL IV PRN (03:30)
[2020-12-24] MEDS ORDERED: ACETAMINOPHEN 325 MG TAB PO PRN (03:30)
[2020-12-24] MEDS ORDERED: DOCUSATE SOD 100 MG CAP PO PRN (03:30)
[2020-12-24] MEDS ORDERED: HYDROcodone-ACET 5/325MG TAB PO PRN (03:30)
[2020-12-24] MEDS ORDERED: NITROGLYCERIN 0.4 MG SL TAB SL PRN (04:30)
[2020-12-24] MEDS ORDERED: MORPHINE SULFATE INJECTION 2 MG/ML SYRG IV PRN (04:30)
[2020-12-24] MEDS: SODIUM CHLOR 0.9% PF (SALINE LOCK) 10ML VIAL/SYR IV SCH ×3 (06:00→23:07)
[2020-12-24 07:51] LABS: Basophils # (auto) 0.1 10 ^3/uL (0-0.2); Basophils % (auto) 1.3 % (0.0-2.0); Eosinophils # (auto) 0.1 10 ^3/uL (0-0.8); Eosinophils % (auto) 0.6 % (0.0-7.0); Hematocrit 31.9 % (41.0-53.0); Hemoglobin 9.9 g/dL (13.5-17.5); Lymphocytes % (auto) 11.4 % (10.0-50.0); Mean Corpuscular Hemoglobin 22.6 pg (28.0-32.0); Mean Corpuscular Hgb Conc. 30.9 g/dL (32.0-36.0); Monocytes # (auto) 1.1 10 ^3/uL (0-1.3); Monocytes % (auto) 11.7 % (0.0-12.0); Neutrophils # (auto) 6.9 10 ^3/uL (1.6-8.6); Red Blood Cells 4.35 10^6/uL (4.5-5.90); Red Cell Distribution Width 19.2 % (11.8-14.3); White Blood Cell 9.1 10^3/uL (4.4-10.8)
[2020-12-24 07:53] LABS: Mean Corpuscular Volume 73.2 fL (80.0-100.0)
[2020-12-24 08:07] LABS: Calcium 8.7 mg/dL (8.5-10.1); Potassium 3.5 mmol/L (3.5-5.1)
[2020-12-24 08:13] LABS: Albumin 2.7 g/dL (3.4-5.0); BUN/Creatinine Ratio 29.8; Total Protein 6.8 g/dL (6.4-8.2)
[2020-12-24 09:00] VITALS: BP 118/69
[2020-12-24] MEDS ORDERED: APIXABAN 5 MG TAB PO SCH (10:00)
[2020-12-24] MEDS: FUROSEMIDE 40 MG/4 ML VIAL IV SCH (11:34)
[2020-12-24] MEDS: ASPirin 81 mg TAB PO SCH (11:35)
[2020-12-24] MEDS: FAMOTIDINE (10MG/ML) 2ML VL IV SCH (11:35)
[2020-12-24] MEDS: CARVEDILOL 12.5 MG TAB PO SCH ×2 (11:35→23:06)
[2020-12-24] MEDS: MULTIPLE VITAMIN TAB PO SCH (11:36)
[2020-12-24 17:00] VITALS: BP 115/66
[2020-12-24] MEDS ORDERED: CLOPIDOGREL 300 MG TAB PO ONE (17:30)
[2020-12-24 20:00] VITALS: BP 109/67
[2020-12-24 22:00] VITALS: BP 122/85
[2020-12-24] MEDS ORDERED: ATORVASTATIN 20 MG TAB PO SCH (22:00)
[2020-12-24] MEDS: ENOXAPARIN SOD 80 MG/0.8ML SYRINGE SC SCH (23:06)
[2020-12-25 05:00] VITALS: BP 133/102
[2020-12-25] MEDS: SODIUM CHLOR 0.9% PF (SALINE LOCK) 10ML VIAL/SYR IV SCH ×3 (05:09→21:37)
[2020-12-25 07:35] LABS: Basophils # (auto) 0.1 10 ^3/uL (0-0.2); Eosinophils # (auto) 0 10 ^3/uL (0-0.8); Eosinophils % (auto) 0.4 % (0.0-7.0); Lymphocytes # (auto) 0.5 10 ^3/uL (0.4-5.4); Red Cell Distribution Width 19.4 % (11.8-14.3)
[2020-12-25 07:38] LABS: Basophils % (auto) 0.6 % (0.0-2.0); Hematocrit 31.2 % (41.0-53.0); Hemoglobin 9.7 g/dL (13.5-17.5); Lymphocytes % (auto) 4.7 % (10.0-50.0); Monocytes % (auto) 9.2 % (0.0-12.0); Neutrophils # (auto) 8.9 10 ^3/uL (1.6-8.6); Neutrophils % (auto) 85.1 % (37.0-80.0); Red Blood Cells 4.25 10^6/uL (4.5-5.90); White Blood Cell 10.4 10^3/uL (4.4-10.8)
[2020-12-25 07:51] LABS: Mean Corpuscular Hemoglobin 22.7 pg (28.0-32.0); Mean Corpuscular Volume 73.3 fL (80.0-100.0)
[2020-12-25 07:54] LABS: Potassium 3.6 mmol/L (3.5-5.1)
[2020-12-25 08:02] LABS: Albumin 2.8 g/dL (3.4-5.0); BUN/Creatinine Ratio 33.2; Bilirubin, Total 1.5 mg/dL (0.2-1.0); Calcium 9.1 mg/dL (8.5-10.1)
[2020-12-25 09:00] VITALS: BP 109/84
[2020-12-25] MEDS: CARVEDILOL 12.5 MG TAB PO SCH ×2 (10:04→21:36)
[2020-12-25] MEDS: MULTIPLE VITAMIN TAB PO SCH (10:04)
[2020-12-25] MEDS: ENOXAPARIN SOD 80 MG/0.8ML SYRINGE SC SCH ×2 (10:04→21:42)
[2020-12-25] MEDS: FAMOTIDINE (10MG/ML) 2ML VL IV SCH (10:05)
[2020-12-25] MEDS: ASPirin 81 mg TAB PO SCH (10:05)
[2020-12-25] MEDS: FUROSEMIDE 40 MG/4 ML VIAL IV SCH (10:05)
[2020-12-25] MEDS ORDERED: DOBUTamine 1000MCG/ML 250 ML IV SCH ×5 (11:45→17:45)
[2020-12-25 13:00] VITALS: BP 108/66
[2020-12-25] MEDS: DOBUTamine 1000MCG/ML 250 ML IV SCH (17:51)
[2020-12-25] MEDS: CLOPIDOGREL BISULFATE 75 MG TAB PO SCH (21:37)
[2020-12-25 22:02] VITALS: BP 105/55
[2020-12-26 05:09] VITALS: BP 110/69
[2020-12-26] MEDS: SODIUM CHLOR 0.9% PF (SALINE LOCK) 10ML VIAL/SYR IV SCH ×3 (06:06→21:22)
[2020-12-26 07:49] LABS: Basophils # (auto) 0.1 10 ^3/uL (0-0.2); Basophils % (auto) 0.7 % (0.0-2.0); Eosinophils # (auto) 0.1 10 ^3/uL (0-0.8); Eosinophils % (auto) 1.2 % (0.0-7.0); Hematocrit 30.6 % (41.0-53.0); Hemoglobin 9.4 g/dL (13.5-17.5); Lymphocytes # (auto) 1.2 10 ^3/uL (0.4-5.4); Lymphocytes % (auto) 10.8 % (10.0-50.0); Mean Corpuscular Hemoglobin 22.3 pg (28.0-32.0); Mean Corpuscular Hgb Conc. 30.5 g/dL (32.0-36.0); Mean Corpuscular Volume 72.9 fL (80.0-100.0); Monocytes # (auto) 0.9 10 ^3/uL (0-1.3); Monocytes % (auto) 8.3 % (0.0-12.0); Neutrophils # (auto) 8.7 10 ^3/uL (1.6-8.6); Red Cell Distribution Width 19.4 % (11.8-14.3); White Blood Cell 11.1 10^3/uL (4.4-10.8)
[2020-12-26 08:13] LABS: Albumin 2.6 g/dL (3.4-5.0); Calcium 8.9 mg/dL (8.5-10.1); Potassium 3.4 mmol/L (3.5-5.1)
[2020-12-26 08:15] LABS: BUN/Creatinine Ratio 42.3; Bilirubin, Total 1.4 mg/dL (0.2-1.0); Total Protein 6.7 g/dL (6.4-8.2)
[2020-12-26 08:51] VITALS: BP 115/73
[2020-12-26] MEDS: ASPirin 81 mg TAB PO SCH (09:50)
[2020-12-26] MEDS: MULTIPLE VITAMIN TAB PO SCH (09:50)
[2020-12-26] MEDS: CARVEDILOL 12.5 MG TAB PO SCH ×2 (09:51→21:22)
[2020-12-26] MEDS: FUROSEMIDE 40 MG/4 ML VIAL IV SCH (09:51)
[2020-12-26] MEDS: ENOXAPARIN SOD 80 MG/0.8ML SYRINGE SC SCH ×2 (09:51→21:22)
[2020-12-26] MEDS: DOBUTamine 1000MCG/ML 250 ML IV SCH (10:20)
[2020-12-26 13:00] VITALS: BP 112/73
[2020-12-26 17:00] VITALS: BP 101/73
[2020-12-26] MEDS: CLOPIDOGREL BISULFATE 75 MG TAB PO SCH (21:22)
[2020-12-26 22:00] VITALS: BP 117/74
[2020-12-27] VITALS (10 sets, daily range): BP systolic 104–139; BP diastolic 69–100
[2020-12-27] MEDS: SODIUM CHLOR 0.9% PF (SALINE LOCK) 10ML VIAL/SYR IV SCH ×3 (05:18→21:00)
[2020-12-27 06:42] LABS: Albumin 2.6 g/dL (3.4-5.0); BUN/Creatinine Ratio 43.3; Bilirubin, Total 1.4 mg/dL (0.2-1.0); Calcium 9.2 mg/dL (8.5-10.1); Total Protein 6.7 g/dL (6.4-8.2)
[2020-12-27] MEDS: CARVEDILOL 12.5 MG TAB PO SCH ×2 (10:00→21:07)
[2020-12-27] MEDS: ENOXAPARIN SOD 80 MG/0.8ML SYRINGE SC SCH ×2 (10:00→20:58)
[2020-12-27] MEDS: FUROSEMIDE 40 MG/4 ML VIAL IV SCH (10:00)
[2020-12-27] MEDS: MULTIPLE VITAMIN TAB PO SCH (10:00)
[2020-12-27] MEDS: ASPirin 81 mg TAB PO SCH (10:00)
[2020-12-27 10:22] LABS: Hepatitis B Surface Antibody Negative (Negative)
[2020-12-27 11:35] LABS: Hepatitis C Antibody Negative (Negative)
[2020-12-27 11:40] LABS: Hepatitis A Total Antibody Positive (Negative)
[2020-12-27] MEDS ORDERED: IOHEXOL 350 MG/ML 100ML IJ ONE (11:59)
[2020-12-27] MEDS ORDERED: LIDOCAINE 2%HCL (LOCAL ANESTH.) INJ 20ML MDV ONE ×2 (11:59→13:01)
[2020-12-27] MEDS ORDERED: ANGIOMAX 250 MG VIAL IV ONE (12:04)
[2020-12-27] MEDS ORDERED: MIDAZOLAM HCL 2MG/2ML 2ml VIAL (1mg/ml) ONE (12:04)
[2020-12-27] MEDS ORDERED: fentaNYL CITRATE 100 MCG/2 ML VL ONE (12:04)
[2020-12-27] MEDS ORDERED: SODIUM CHL 0.9% 50 ML ONE (12:05)
[2020-12-27] MEDS ORDERED: IODIXANOL 320MG/ML 100ML BTL IV ONE (13:03)
[2020-12-27] MEDS ORDERED: ATROPINE SULF 1 MG/10ml SYR ONE (13:24)
[2020-12-27] MEDS: DOBUTamine 1000MCG/ML 250 ML IV SCH ×2 (15:18→18:31)
[2020-12-27] MEDS: CLOPIDOGREL BISULFATE 75 MG TAB PO SCH (21:07)
[2020-12-28 05:00] VITALS: BP 110/69
[2020-12-28] MEDS: SODIUM CHLOR 0.9% PF (SALINE LOCK) 10ML VIAL/SYR IV SCH ×3 (05:32→22:00)
[2020-12-28 06:54] LABS: Basophils # (auto) 0.1 10 ^3/uL (0-0.2); Basophils % (auto) 0.9 % (0.0-2.0); Eosinophils # (auto) 0.1 10 ^3/uL (0-0.8); Eosinophils % (auto) 0.6 % (0.0-7.0); Hemoglobin 9.2 g/dL (13.5-17.5); Lymphocytes # (auto) 1.2 10 ^3/uL (0.4-5.4); Lymphocytes % (auto) 10.9 % (10.0-50.0); Mean Corpuscular Hemoglobin 22.7 pg (28.0-32.0); Mean Corpuscular Hgb Conc. 30.7 g/dL (32.0-36.0); Monocytes # (auto) 1.1 10 ^3/uL (0-1.3); Monocytes % (auto) 10.6 % (0.0-12.0); Neutrophils # (auto) 8.2 10 ^3/uL (1.6-8.6); Red Blood Cells 4.06 10^6/uL (4.5-5.90); Red Cell Distribution Width 19.8 % (11.8-14.3); White Blood Cell 10.6 10^3/uL (4.4-10.8)
[2020-12-28 06:56] LABS: Mean Corpuscular Volume 74.1 fL (80.0-100.0)
[2020-12-28 07:16] LABS: Potassium 4.2 mmol/L (3.5-5.1)
[2020-12-28] MEDS: ENOXAPARIN SOD 80 MG/0.8ML SYRINGE SC SCH (07:21)
[2020-12-28 07:35] LABS: Albumin 2.3 g/dL (3.4-5.0); BUN/Creatinine Ratio 42.5; Bilirubin, Direct 1.1 mg/dL (0-0.2); Bilirubin, Total 1.7 mg/dL (0.2-1.0); Calcium 8.4 mg/dL (8.5-10.1); Total Protein 6.1 g/dL (6.4-8.2)
[2020-12-28 09:00] VITALS: BP 106/71
[2020-12-28] MEDS: MULTIPLE VITAMIN TAB PO SCH (09:15)
[2020-12-28] MEDS: CARVEDILOL 12.5 MG TAB PO SCH (09:21)
[2020-12-28] MEDS: FUROSEMIDE 40 MG/4 ML VIAL IV SCH (09:22)
[2020-12-28] MEDS: ASPirin 81 mg TAB PO SCH (09:22)
[2020-12-28] MEDS: CARVEDILOL 3.125 MG TAB PO SCH ×2 (10:00→22:37)
[2020-12-28 13:00] VITALS: BP 92/62
[2020-12-28 17:00] VITALS: BP 93/62
[2020-12-28 22:00] VITALS: BP 109/62
[2020-12-28] MEDS ORDERED: CARVEDILOL 3.125 MG TAB PO SCH (22:00)
[2020-12-28] MEDS: CLOPIDOGREL BISULFATE 75 MG TAB PO SCH (22:37)
[2020-12-29 05:00] VITALS: BP 110/74
[2020-12-29] MEDS: SODIUM CHLOR 0.9% PF (SALINE LOCK) 10ML VIAL/SYR IV SCH ×3 (05:39→22:00)
[2020-12-29 06:29] LABS: Potassium 4.1 mmol/L (3.5-5.1)
[2020-12-29 06:35] LABS: BUN/Creatinine Ratio 46.9; Calcium 9.2 mg/dL (8.5-10.1)
[2020-12-29 06:38] LABS: Albumin 2.6 g/dL (3.4-5.0); Bilirubin, Direct 1.1 mg/dL (0-0.2); Bilirubin, Total 1.4 mg/dL (0.2-1.0); Total Protein 6.7 g/dL (6.4-8.2)
[2020-12-29] MEDS ORDERED: LACTULOSE 20Gm/30ML SOLN PO ONE (10:45)
[2020-12-29] MEDS: MULTIPLE VITAMIN TAB PO SCH (11:12)
[2020-12-29] MEDS: CARVEDILOL 3.125 MG TAB PO SCH ×2 (11:16→22:30)
[2020-12-29] MEDS: FUROSEMIDE 40 MG/4 ML VIAL IV SCH (11:16)
[2020-12-29] MEDS: ASPirin 81 mg TAB PO SCH (11:16)
[2020-12-29 13:21] VITALS: BP 120/79
[2020-12-29 22:00] VITALS: BP 117/68
[2020-12-29] MEDS: CLOPIDOGREL BISULFATE 75 MG TAB PO SCH (22:29)
[2020-12-30] VITALS (7 sets, daily range): BP systolic 81–115; BP diastolic 49–81
[2020-12-30] MEDS: SODIUM CHLOR 0.9% PF (SALINE LOCK) 10ML VIAL/SYR IV SCH ×3 (06:40→21:38)
[2020-12-30 09:39] LABS: BUN/Creatinine Ratio 45.1; Calcium 8.9 mg/dL (8.5-10.1); Potassium 3.7 mmol/L (3.5-5.1)
[2020-12-30] MEDS: FUROSEMIDE 40 MG/4 ML VIAL IV SCH (10:00)
[2020-12-30] MEDS ORDERED: LACTULOSE 20Gm/30ML SOLN PO PRN (10:00)
[2020-12-30] MEDS: CARVEDILOL 3.125 MG TAB PO SCH ×2 (10:42→21:37)
[2020-12-30] MEDS: MULTIPLE VITAMIN TAB PO SCH (10:42)
[2020-12-30] MEDS: CLOPIDOGREL BISULFATE 75 MG TAB PO SCH (21:38)
[2020-12-30] MEDS: APIXABAN 5 MG TAB PO SCH (21:38)
[2020-12-30] MEDS ORDERED: ALBUMIN 5% 250 ML IV ONE (22:15)
[2020-12-31 05:00] VITALS: BP 100/65
[2020-12-31] MEDS: SODIUM CHLOR 0.9% PF (SALINE LOCK) 10ML VIAL/SYR IV SCH ×2 (06:02→14:00)
[2020-12-31 06:40] LABS: Albumin 2.6 g/dL (3.4-5.0); Bilirubin, Direct 0.8 mg/dL (0-0.2); Calcium 8.9 mg/dL (8.5-10.1); Potassium 3.7 mmol/L (3.5-5.1)
[2020-12-31 06:44] LABS: BUN/Creatinine Ratio 41.6; Bilirubin, Total 1.1 mg/dL (0.2-1.0); Total Protein 6.4 g/dL (6.4-8.2)
[2020-12-31 08:00] VITALS: BP 100/69
[2020-12-31] MEDS: FUROSEMIDE 40 MG/4 ML VIAL IV SCH (10:28)
[2020-12-31] MEDS: APIXABAN 5 MG TAB PO SCH (10:29)
[2020-12-31] MEDS: CARVEDILOL 3.125 MG TAB PO SCH (10:29)
[2020-12-31] MEDS: MULTIPLE VITAMIN TAB PO SCH (10:29)
[2020-12-31] MEDS ORDERED: MULTTAB99 PO (11:32)
[2020-12-31] MEDS ORDERED: CLOP75TA28 PO (11:32)
[2020-12-31] MEDS ORDERED: CARV6.25 PO (11:32)
[2020-12-31] MEDS ORDERED: APIX5TAB PO (11:32)
[2020-12-31] MEDS ORDERED: FURO40TA4 PO (11:32)
[2020-12-31 12:00] VITALS: BP 97/61
[2020-12-31 16:00] VITALS: BP 97/59
== END 2020-12-31 18:06 | disposition home or self-care (01) | DRG 250 ==
LOC: ER 17:23 → EDBD 17:23 → TELE 12-24 04:18 → TELE-WESTW 12-24 08:59
PROVIDERS: ADMIT Nurse Practitioner Family; ATTEND Internal Medicine
PROC: 02C03ZZ Extirpation of Matter from Coronary Artery, One Artery, Percutaneous Approach (ICD-10-PCS; principal; 2020-12-27)
PROC: 4A023N7 Measurement of Cardiac Sampling and Pressure, Left Heart, Percutaneous Approach (ICD-10-PCS; 2020-12-27)
PROC: B211YZZ Fluoroscopy of Multiple Coronary Arteries using Other Contrast (ICD-10-PCS; 2020-12-27)
PROC: B212YZZ Fluoroscopy of Single Coronary Artery Bypass Graft using Other Contrast (ICD-10-PCS; 2020-12-27)
PROC: B218YZZ Fluoroscopy of Left Internal Mammary Bypass Graft using Other Contrast (ICD-10-PCS; 2020-12-27)
PROC: B312YZZ Fluoroscopy of Left Subclavian Artery using Other Contrast (ICD-10-PCS; 2020-12-27)
DX: I21.4 Non-ST elevation (NSTEMI) myocardial infarction (principal); I50.23 Acute on chronic systolic (congestive) heart failure; I13.0 Hypertensive heart and chronic kidney disease with heart failure and stage 1 through stage 4 chronic kidney disease, or unspecified chronic kidney disease; N17.9 Acute kidney failure, unspecified; E87.6 Hypokalemia; E88.09 Other disorders of plasma-protein metabolism, not elsewhere classified; D63.8 Anemia in other chronic diseases classified elsewhere; N18.9 Chronic kidney disease, unspecified; I25.5 Ischemic cardiomyopathy; I48.91 Unspecified atrial fibrillation; I70.202 Unspecified atherosclerosis of native arteries of extremities, left leg; J44.9 Chronic obstructive pulmonary disease, unspecified; K80.20 Calculus of gallbladder without cholecystitis without obstruction; Z20.822 Contact with and (suspected) exposure to COVID-19; F41.9 Anxiety disorder, unspecified; F17.210 Nicotine dependence, cigarettes, uncomplicated; E78.5 Hyperlipidemia, unspecified; I25.2 Old myocardial infarction; Z79.01 Long term (current) use of anticoagulants; Z82.3 Family history of stroke; Z95.1 Presence of aortocoronary bypass graft; Z95.810 Presence of automatic (implantable) cardiac defibrillator
CPT/HCPCS: 36415; 71045; 76705; 80048; 80053; 80076; 81001; 82962; 83735; 83880; 84443; 84484; 85025; 85610; 85730; 86704; 86706; 86708; 86803; 86850; 86900; 86901; 87340; 87426; 93005; 97116; 97530; 99152; 99153; C1724; C1769; G0378; J2250; J2405; J3490; Q9967